=== PATIENT | male | born 1980 | race Caucasian/White ===

== ENCOUNTER 2018-12-06 14:37 | Emergency (ER) | payer OTHER ==
[2018-12-06 15:16] VITALS: BP 107/63
--- NOTE | 2018-12-06 15:17 | UC ---
Laceration HPI - HPI Summary HPI Summary: today was cutting fruit and knife went through to other hand. cut himself between thumb and index left. denies tingling/numbness but did report bleeding which has stopped. he feels he may need sutures. R handed. - History Of Current Complaint Chief Complaint: UCUpperExtremity Stated Complaint: FINGER LAC Time Seen by Provider: 12/06/18 15:04 Hx Obtained From: Patient Laceration Location: Hand Mechanism Of Injury: Blunt Trauma - Allergies/Home Medications Allergies/Adverse Reactions: Allergies Allergy/AdvReac Type Severity Reaction Status Date / Time No Known Allergies Allergy Verified 12/06/18 14:57 Home Medications: Home Medications NK [No Home Medications Reported] 12/06/18 [History Confirmed 12/06/18] PMH/Surg Hx/FS Hx/Imm Hx - Additional Past Medical History Additional PMH: no chronic issues Previously Healthy: Yes - Family History Known Family History: Positive: Non-Contributory Review of Systems All Other Systems Reviewed And Are Negative: Yes Skin: Positive: Other - laceration at hand. Negative: Rash Musculoskeletal: Positive: Arthralgia - left hand pain Physical Exam Triage Information Reviewed: Yes Appearance: Well-Appearing Vital Signs Reviewed: Yes Musculoskeletal: Positive: Other: - left hand between index and thumb linear 1/ 2 in. long partial thickness. no active bleeding. derma strickland used after wound was cleaned and dried. Laceration Course/Dx - Course/Dx Course Of Treatment: Small laceration between L index and thumb w/ no active bleeding as he comes in today. Not quite deep enough for sutures so it was decided that derma strickland was sufficient. no complications . we discussed returning if redness and swelling. up to date with tetanus - Differential Dx - Laceration/Wound Differental Diagnoses: Laceration - Diagnosis Provider Diagnosis: Laceration Discharge - Sign-Out/Discharge Documenting (check all that apply): Patient Departure All imaging exams completed and their final reports reviewed: No Studies - Discharge Plan Condition: Good Disposition: HOME Patient Education Materials: Care For Your Stitches (DC) Referrals: No Primary Care Phys,NOPCP [Primary Care Provider] - Additional Instructions: if red or swelling occurs in 2-3 days please return. - Billing Disposition and Condition Condition: GOOD Disposition: Home - Attestation Statements Provider Attestation: I was available for consult. This patient was seen by the [facility]. The patient was not presented to , seen by or examined by me Caitie Sanderson MD
== END 2018-12-06 15:45 | disposition home or self-care (01) ==
LOC: UCEAST 14:37
DX: S61.412A Laceration without foreign body of left hand, initial encounter (principal); W26.0XXA Contact with knife, initial encounter; Y93.G1 Activity, food preparation and clean up; Y92.010 Kitchen of single-family (private) house as the place of occurrence of the external cause; Y99.8 Other external cause status
CPT/HCPCS: 12001; 99211; G0463